=== PATIENT | male | born 1955 | race Caucasian/White ===

== ENCOUNTER 2016-08-19 14:55 | Outpatient (CLI) | payer BC ==
--- NOTE | 2016-08-19 20:39 | RAD ---
RIGHT SHOULDER THREE VIEWS 08/19/16 No acute fracture or dislocation was seen. Some bony spurring is suggested in the glenohumeral joint , but the joint space is still preserved. The AC joint is not wide but there is bony spurring in it as well indicating arthritic change. The adjacent lung seems clear. The scapula appears intact. IMPRESSION: Minor degenerative changes as noted. POS: HOME
== END 2016-08-19 14:56 | disposition home or self-care (01) ==
LOC: BURRAD 14:55
PROVIDERS: ATTEND Family Medicine
DX: M25.511 Pain in right shoulder (principal); M24.111 Other articular cartilage disorders, right shoulder